=== PATIENT | male | born 1970 | race Caucasian/White ===

== ENCOUNTER 2016-08-04 10:46 | Inpatient (IN) | payer MEDICARE ==
--- NOTE | ~2016-08-04 | DS ---
Discharge Summary [facility] [address] [place]. [address] NAME: RANDY ADDISON : 74 STATUS : DIS IN PAT#: [id number] AGE: 46 ADM/REG DATE : 08/05/16 MR#: [id number] REPORT SERV DATE: 08/26/16 DICTATED BY: RYLAND CUEVA DATE: 08/25/16 REPORT STATUS : Draft TRANSCRIBED BY: MODCapri DATE: 08/25/16 Data Collection from hospitalization DISCHARGE DIAGNOSES: 1. Occlusion of both superficial femoral arteries. 2. Stenosis of right common iliac stent. 3. Occlusion of the anterior tibials bilaterally with only posterior tibial runoff bilaterally. 4. Diabetes. 5. Hypertension. 6. Neuropathy. 7. History of stroke. 8. Peripheral vascular disease. 9. History of myocardial infarction. 10.Tobacco use. CONSULTATION: Dr. Javon Miller. Dr. Alla Carpio. PROCEDURES PERFORMED: 1. Aortogram, bilateral lower extremity runoff, right superficial femoral artery stent using a 6 x 80 stent, percutaneous transluminal angioplasty of the right common iliac artery using a 6 x 4 balloon, pedal access, 08/04/2016. 2. Right femoral to distal popliteal and tibioperoneal trunk bypass using reverse saphenous vein, 08/08/2016. 3. Right cgmww-fku-ochr amputation, 08/10/2016. 4. Vein mapping of the bilateral lower extremities, 08/05/2016. 5. Myocardial perfusion imaging study, 08/06/2016. PATHOLOGY: Right leg yfrwj-dlk-aqjt amputation-benign cutaneous tissue with focal deep dermal subcutaneous microabscesses. Large vascular structures with focal atherosclerotic changes and calcification without luminal occlusion. Viable proximal skin and soft tissue and large vessel margins with ameq-rq-mekengh hyperplasia without prominent occlusion or marked atherosclerotic vascular changes. DISCHARGE MEDICATIONS: Norvasc 5 mg every morning, aspirin 81 mg every morning, Lipitor 40 mg at bedtime, Colace 100 mg twice a day, NovoLog injection insulin as instructed, Synthroid 150 mcg every morning, Lopressor 25 mg twice a day, Prilosec 40 mg every morning, MiraLAX powder one packet daily, Levemir 40 units subcutaneously twice a day, Tylenol 650 mg every four hours as needed, Mylanta 30 mL as needed, Dulcolax 10 mg per rectum every eight hours as needed, glucose tablets three tablets as needed, Ativan 2 mg at bedtime as needed, Mycostatin cream one application topically as needed, Percocet 5/325 two tablets every four hours as needed. CONDITION AT DISCHARGE: Stable. DISPOSITION: The patient was discharged to [facility] on an 1800- calorie diabetic diet with activities as instructed. He would follow up with Dr. Miller one month following discharge. He would follow up with me two weeks following discharge. Discharge Summary [address] [address] NAME: RANDY ADDISON : 74 STATUS : DIS IN PAT#: [id number] AGE: 46 ADM/REG DATE : 08/05/16 MR#: [id number] REPORT SERV DATE: 08/26/16 DICTATED BY: RYLAND CUEVA DATE: 08/25/16 REPORT STATUS : Draft TRANSCRIBED BY: MAIKEL DATE: 08/25/16 HOSPITAL COURSE: This is a 46-year-old man, who is a chronic vasculopath with horrible lower extremity disease. He continues to smoke. He takes Eliquis for management of his lower extremity blood flow. He has a previous history of stroke with residual paralysis and weakness of his right arm and leg and does not typically walk much due to his limited mobility. He said that he began having pain in the right foot at night when he was asleep. The pain was only improved by dangling his leg off the edge of the bed. MATT duplex had shown ischemia in the right leg with 0 toe pressure. No ulcerations were noted. He had no complaints regarding the left leg. He said that he had been taking his Eliquis as instructed twice a day and had not missed any dosages. The patient has rest pain of the right lower extremity. He has atherosclerotic disease with known previous stenting. It was felt that he would need to undergo aortogram and bilateral lower extremity runoff. He was admitted to the hospital at this time for further evaluation and treatment. Upon admission, the patient was taken to the operating room, where he underwent the above- mentioned procedure. He tolerated this well and there were no complications. The following day, he still had rest pain. It was felt that he would require fem-pop bypass for an attempt to salvage the right lower extremity. Vein mapping of the bilateral lower extremity was performed. He was seen by Dr. Alla Carpio. The patient was in the sinus rhythm. The patient has had diabetes mellitus since 2006. He had been on insulin since 2008. Hemoglobin A1c was going to be checked. The patient said he stopped smoking five days prior to this admission. We strongly recommended that he continue smoking cessation. Myocardial perfusion imaging study was requested. He was seen by Dr. Miller for preoperative evaluation in a patient with known coronary heart disease and a history of previous myocardial infarction. The patient was going to require lower extremity bypass surgery due to residual stenosis. He has relatively limited functional capacity. He does have a history of previous left hemispheric stroke with fairly dense right-sided hemiparesis. He is able to move the right lower extremity, although he cannot move the right upper extremity. He can walk stairs, but at a reduced pace. He reported no chest pain at this time. He said he did not have chest pain at the time of his myocardial infarction. He reported his index symptoms of myocardial ischemia as being generalized fatigue. He has no previous history of congestive heart failure or valvular heart disease. The patient had been a two-pack per day smoker for 22 years. He had just stopped smoking five days previously. A 12-lead EKG was reviewed. The patient has a poor functional status and was unable to perform the equivalent of 4 METs of activity. While he had no overt symptoms of acute coronary syndrome or congestive heart failure, Dr. Miller recommend risk stratification with myocardial perfusion imaging prior to proceeding with surgery. Given the high risk nature of his surgery should the patient have any large area of myocardial ischemia, then coronary angiography may be warranted preoperatively. Atorvastatin was continued as well as aspirin. He is being treated with Eliquis. This was being held for his vascular surgery. He underwent diabetes education. On the , a myocardial perfusion imaging study was performed. Imaging demonstrated no ischemia. Post infusion left ventricular ejection fraction was 55%. He denied chest pain or shortness of breath. He did have some hypoglycemia the previous evening. He did complain of right foot pain at rest. Hemoglobin A1c was 7.2. Lisinopril would be started if creatinine level remained stable. His right foot pain was controlled, but he still had some numbness and tingling. Heparin drip continued. He remained in a sinus rhythm. Blood glucose control was improving. On Discharge [address] [place]. [address] NAME: RANDY ADDISON: 74 STATUS : DIS IN PAT#: [id number] AGE: 46 ADM/REG DATE : 08/05/16 MR#: [id number] REPORT SERV DATE: 08/26/16 DICTATED BY: RYLAND CUEVA DATE: 08/25/16 REPORT STATUS : Draft TRANSCRIBED BY: MAIKEL DATE: 08/25/16 the , he was taken to the operating room, where he underwent the above-mentioned procedure. He tolerated this well and there were no complications. Postoperatively, Levemir was increased. On 08/09/2016, he was sitting up in bed. His pain was controlled with the CONTENT SPECIALIST. The foot was warm. Heparin was continued. He was still in the ICU. The next day, the patient was seen by Dr. Garrett Meyer. He had been asked to look at the right foot. The patient had decreased Doppler flow. His toes were dusky. He still had normal sensation. He was on a heparin drip. The patient had severe pain in the foot and was asking for amputation. The patient was taken to the operating room by Dr. Garrett Meyer, where he underwent the above- mentioned procedure. He tolerated this well and there were no complications. The patient remained on an insulin drip. Calcium channel norma and beta-norma were continued. The following day, his pain was controlled with the CONTENT SPECIALIST. He was tolerating some oral intake. He was evaluated by Occupational and Physical Therapy. He was in good spirits. On 08/12/2016, his pain was controlled with oral medications. He was in a knee immobilizer. Diabetes education continued. Sliding scale insulin and Levemir were continued as well. The following day, discharge planning was performed. His pain level was 4/10. We discussed the need to decrease his pain medication and the patient verbalized an understanding. Blood glucose was difficult to control. On 08/14/2016, he continued to progress. Blood glucose levels were under better control. Discharge instructions were given. Due to his improved and stable condition, he was discharged to [facility] with the above-stated instructions. Information collected by: Albina Oliveros I submit the above information as my discharge summary. SOL/MAIKEL Ryland Cueva M.D. / [id number] CC: Karen Ibrahim N.P. John Carter Hemphill, MD [facility]
--- NOTE | ~2016-08-04 | CN ---
Consultation Report [facility] [address] [place]. [address] NAME: RANDY ADDISON : 74 STATUS : ADM IN PAT#: [id number] AGE: 46 ADM/REG DATE : 08/05/16 MR#: [id number] REPORT SERV DATE: 08/05/16 DICTATED BY: JASPER MILLER DATE: 08/05/16 REPORT STATUS : Draft TRANSCRIBED BY: MODL DATE: 08/05/16 CARDIOLOGY CONSULTATION NOTE DATE OF CONSULTATION: 08/05/2016 REASON FOR CONSULTATION: Preoperative evaluation in a 46-year-old man with known coronary heart disease status post previous myocardial infarction. HISTORY OF PRESENT ILLNESS: Mr. Addison is a 46-year-old man with known coronary heart disease status post myocardial infarction in the year 2014 with percutaneous coronary intervention performed in [place], [place] by Dr. Castle. The patient was admitted electively by Dr. Mcghee for treatment of limb-threatening ischemia. The patient underwent percutaneous revascularization to the right superficial femoral artery and left femoral artery yesterday, 08/04/2016. The patient had no immediate complications, but apparently will require lower extremity bypass surgery due to residual stenosis. The patient therefore is preoperative status for open femoral popliteal bypass. The patient has relatively limited functional capacity. He has a history of previous left hemispheric stroke with a fairly dense right-sided hemiparesis. The patient is able to move his right lower extremity, though he cannot move his right upper extremity. The patient is able to walk stairs, but does so at a reduced pace. He is not able to perform the equivalent of 4 METs of activity. However, the patient has no chest pain at this time. He did not have chest pain at the time of his myocardial infarction however. He reports his index symptoms of myocardial ischemia as being generalized fatigue. The patient has no previous history of congestive heart failure or valvular heart disease. PAST MEDICAL HISTORY: 1. Type 2 diabetes. 2. Hypertension. 3. Dyslipidemia. 4. Peripheral arterial disease. 5. Stroke. 6. Tobacco abuse. 7. Hypothyroidism. PAST SURGICAL HISTORY: This is significant for multiple percutaneous revascularization procedures including visceral stents, not otherwise specified and previous percutaneous interventions to the patient's lower extremity for claudication. The patient underwent percutaneous coronary intervention to the first obtuse marginal branch on 11/29/[address] Castle, according to the card that the patient's family has provided. Surgical history is also significant for an orthopedic procedure to the patient's left ankle. No other surgical history is reported. Consultation Report [address] [place]. [address] NAME: RANDY ADDISON : 74 STATUS : ADM IN PAT#: [id number] AGE: 46 ADM/REG DATE : 08/05/16 MR#: [id number] REPORT SERV DATE: 08/05/16 DICTATED BY: JASPER MILLER DATE: 08/05/16 REPORT STATUS : Draft TRANSCRIBED BY: MAIKEL DATE: 08/05/16 FAMILY HISTORY: The patient reports that he was adopted and is not aware of his extended family history. He does have one biological brother who suffered myocardial infarction however. SOCIAL HISTORY: The patient is a koz-rera-lsv-day smoker x22 years. He reports he quit five days ago. He denies alcohol or recreational drug use. The patient is . ALLERGIES: THE PATIENT REPORTS AN ADVERSE REACTION TO DEMEROL. HOME MEDICATIONS: 1. Amlodipine 5 mg p.o. q.a.m. 2. Eliquis 5 mg p.o. twice daily. 3. Aspirin 81 mg p.o. daily. 4. Atorvastatin 40 mg p.o. at bedtime. 5. Insulin glargine 60 units subcutaneously at bedtime. 6. Humalog insulin 35 units subcutaneously q.a.c. 7. Synthroid 150 mcg p.o. q.a.m. 8. Lorazepam 2 mg p.o. at bedtime as needed for sleep. 9. Metoprolol tartrate 25 mg p.o. twice daily. 10.Nystatin cream apply topically as needed to affected area. 11.Omeprazole 40 mg p.o. at bedtime. REVIEW OF SYSTEMS: A complete 12-system review was performed. This is noncontributory except for the pertinent positives and negatives noted in the history of present illness above. PHYSICAL EXAMINATION: VITAL SIGNS: Temperature is 98.1 degrees Fahrenheit, blood pressure is 161/75 mmHg, heart rate is 73 beats per minute and regular, respirations 20, oxygen saturation is 98% on room air. GENERAL: Well developed. Well nourished. No acute distress. EYES: PERRL, EOMI, clear conjunctiva. HEAD/MNT: NCAT with moist mucous membranes and grossly normal hard and soft palate. NECK: Supple with no obvious thyromegaly or lymphadenopathy. CARDIOVASCULAR: There is a regular rhythm with a normal S1 and a physiologically split second heart sound. No significant murmurs, rubs, or gallops are noted. The jugular venous pressure appears normal. No carotid artery bruits are noted. PULMONARY: Clear to auscultation bilaterally. No wheezing, rales or rhonchi noted. No dullness to percussion. Nonlabored. ABDOMINAL: Soft, nontender, nondistended with no hepatosplenomegaly noted. EXTREMITIES: The lower extremities reveal hair loss suggestive of PAD, but otherwise are warm to the touch with no obvious evidence of ischemia at this time. MUSCULOSKELETAL: Grossly normal strength and range of motion in all extremities. INTEGUMENTARY: Skin appears intact with no bruises, wounds or active lesions noted. NEURO/PSYC: The patient has a dense hemiparesis of the right upper extremity, though Consultation Report [address] [place]. [address] NAME: RANDY ADDISON : 74 STATUS : ADM IN PAT#: [id number] AGE: 46 ADM/REG DATE : 08/05/16 MR#: [id number] REPORT SERV DATE: 08/05/16 DICTATED BY: JASPER MILLER DATE: 08/05/16 REPORT STATUS : Draft TRANSCRIBED BY: MAIKEL DATE: 08/05/16 strength is 4/5 in the right lower extremity. The patient has 5/5 strength in the left upper and left lower extremities. Sensation on the left side is intact, but reduced in the right upper extremity. No other focal deficits are noted. Alert and oriented x3, with no dysarthria, facial droop or lateralizing weakness noted. 12-LEAD EKG: The 12-lead EKG shows normal sinus rhythm. There was a Q-wave noted in lead 3, with nonsignificant Q-waves in leads II and aVF. A previous inferior infarction cannot be excluded. There is poor anterior R-wave progression. There are nonspecific ST/T-wave abnormalities. Otherwise, unremarkable tracing. LABORATORY DATA: CBC shows a white blood cell count of 8.4, hemoglobin 17, hematocrit 49, platelets 378. Electrolytes show a sodium of 135, potassium 4.5, chloride is 101, CO2 of 23, BUN 15 creatinine is 1.1, glucose is 237, calcium is 8.6. ASSESSMENT AND PLAN: 1. Preoperative status for open vascular surgery: The patient has poor functional status, and that he is unable to perform the equivalent of 4 METs of activity. While he has no overt symptoms of acute coronary syndrome or congestive heart failure, I would recommend risk stratification with myocardial perfusion imaging before proceeding to surgery. Given the high-risk nature of the surgery, should the patient have any large area of myocardial ischemia, coronary angiography may be warranted preoperatively. The patient did have a full breakfast today, and therefore his perfusion study will be scheduled for tomorrow morning. In the interim, I will try to obtain official records from Dr. Castle's office to clarify the patient's coronary anatomy. The patient has no history of congestive heart failure, though his LV systolic function is unknown at this time. A perfusion study will be ordered also to evaluate the patient's left ventricular systolic function. He has no murmurs to suggest significant valvular heart disease. Should the patient's myocardial perfusion imaging study show no high-risk features, the patient may then proceed with open surgery. He is at least moderate cardiovascular risk given his poor functional status. 2. Coronary artery disease: Continue aspirin at least 81 mg daily indefinitely. Continue atorvastatin. 3. Peripheral arterial disease: The patient is being followed by Dr. Mcghee. Again he will continue atorvastatin. The patient is being treated with Eliquis, apparently for some type of either arterial thrombosis or DVT. This has been held for the patient's vascular surgery. 4. Type 2 diabetes: The hospital medicine service has been consulted for management of the patient's diabetes. Thank you for allowing me to participate in the care of Mr. Addison. We will make further perioperative recommendations after review of the patient's myocardial perfusion imaging study and hopefully records from Dr. Castle's office. Consultation Report [address] [address] NAME: RANDY ADDISON : 74 STATUS : ADM IN PAT#: [id number] AGE: 46 ADM/REG DATE : 08/05/16 MR#: [id number] REPORT SERV DATE: 08/05/16 DICTATED BY: JASPER MILLER DATE: 08/05/16 REPORT STATUS : Draft TRANSCRIBED BY: MODL DATE: 08/05/16 [facility]/MODL Jasper Miller MD / [id number] CC: Karen Ibrahim N.P.
--- NOTE | ~2016-08-04 | OP ---
Record Of Operation [facility] [address] [place]. [address] NAME: RANDY ADDISON : 74 STATUS : REG [facility] PAT#: [id number] AGE: 46 ADM/REG DATE : 08/04/16 MR#: [id number] REPORT SERV DATE: 08/04/16 DICTATED BY: RYLAND CUEVA DATE: 08/04/16 REPORT STATUS : Draft TRANSCRIBED BY: MODL DATE: 08/04/16 DATE OF PROCEDURE: 08/04/2016 PREOPERATIVE DIAGNOSES: 1. Rest pain, right lower extremity. 2. Atherosclerotic disease with known previous stenting. POSTOPERATIVE DIAGNOSES: 1. Occlusion of both superficial femoral arteries. 2. Stenosis of his right common iliac stent. 3. Occlusion of the anterior tibials bilaterally with only posterior tibial runoff bilaterally. SURGERY PERFORMED: 1. Aortogram. 2. Bilateral lower extremity runoffs. 3. Right superficial femoral artery stent using a 6 x 80 stent. 4. Percutaneous transluminal angioplasty of the right common iliac artery using a 6 x 4 balloon. 5. Pedal access. SURGEON: Ryland Cueva M.D. DESCRIPTION OF PROCEDURE: The patient was placed under general anesthesia. The groins were prepped and draped in a sterile fashion. Left femoral artery cannulated. UF catheter placed into the abdominal aorta. An aortogram done showing both renal arteries were patent, although the right was not seen well due to bowel gas, but appeared to be grossly normal. The both iliacs appeared to be patent proximally. The UF was pulled down into the distal aorta. Runoff films done showing on the right side, the common iliac stent appeared to be stenotic in the distal portion. There was also stent in the external iliac artery that appeared to be patent. The internal was patent. The common femoral, profunda, SFA was patent in the proximal thigh. Distally, the SFA became occluded. Previously placed stent in the thigh also showing occlusion in the SFA. There was reconstitution of the popliteal below the stent and the proximal popliteal. Runoff appeared to be through the posterior tibial primarily. Anterior tibia was not seen, questionable peroneal. At this finding, UF was manipulated up and over the bifurcation, 6, 45, placed up over the bifurcation. Access through the occluded SFA was accomplished with a TrailBlazer and 0.035 wire. However, there was a dissection in the area where the vessel became patent and could not reobtain access to the lumen and eventually had to use the pedal access. He was given 3000 units of heparin prior to this. The posterior tibial artery was accessed at the ankle using the ultrasound and the wire was then able to be passed retrograde into the femoral artery, it was captured with a snare and then pulled up and around through the sheath. The entire occluded portion was then ballooned with a 4 balloon and we were able to obtain some flow through the SFA and the popliteal, but there was still a large atherosclerotic area and distal SFA just proximal to popliteal. The vessels were relatively small. This area was then stented using a 6 x 80 stent and then the ballooning of the entire stent was done again using a 5 balloon. Also, Record Of [address] [place]. [address] NAME: RANDY ADDISON : 74 STATUS : REG [facility] PAT#: [id number] AGE: 46 ADM/REG DATE : 08/04/16 MR#: [id number] REPORT SERV DATE: 08/04/16 DICTATED BY: RYLAND CUEVA DATE: 08/04/16 REPORT STATUS : Draft TRANSCRIBED BY: MODL DATE: 08/04/16 injected 400 mcg of nitroglycerin due to some spasm in the distal popliteal. The final run showing flow through the area into the popliteal into the posterior tibial artery. The sheath was pulled up to the proximal common iliac on the right. Angiogram done showing a questionable area in the very distal common iliac stent indicated on the duplex, this was ballooned with a 6 x 4 [place], this was ballooned up to 12 atmospheres twice and repeat films showing what appeared to be no residual stenosis in the common iliac artery. Runoff on the left side showing that the iliacs were patent. The common femoral profunda was patent. The SFA showed occlusion in the mid thigh and then reconstituted in the popliteal with the posterior tibial artery runoff. He was stable during the operation and went to the recovery room in stable condition. ESTIMATED BLOOD LOSS: 30 mL. MG/MODL Ryland Cueva M.D. / [id number] CC: Karen Ibrahim N.P.
--- NOTE | ~2016-08-04 | OP ---
Record Of Operation [facility] [address] [place]. [address] NAME: RANDY ADDISON : 74 STATUS : ADM IN PAT#: [id number] AGE: 46 ADM/REG DATE : 08/05/16 MR#: [id number] REPORT SERV DATE: 08/10/16 DICTATED BY: GARRETT MEYER JR. DATE: 08/10/16 REPORT STATUS : Draft TRANSCRIBED BY: MAIKEL DATE: 08/10/16 DATE OF PROCEDURE: 08/10/2016 PREOPERATIVE DIAGNOSIS: Failed right leg bypass. POSTOPERATIVE DIAGNOSIS: Failed right leg bypass. OPERATION: Right below-knee amputation. SURGEON: Garrett Meyer M.D. HISTORY: This is a 46-year-old, white male with diabetes who had a desperate bypass attempt several days ago by Dr. Mcghee. Initially, his bypass seemed to work despite a small vein and poor runoff vessels. However, yesterday, it was clear that it was not going to cure his rest pain. He actually requested amputation. PROCEDURE: The patient was placed on the operating table. He underwent general endotracheal anesthetic. The right leg was prepped and draped in the usual sterile manner. The anterior flap was created 15 cm distal to the tibial tubercle. Posterior flap was created 10 cm distal to this. The skin was cut sharply with a knife. Underlying muscle was cut with the cautery. All the muscle appeared to be viable. The anterior tibial artery was essentially occluded. The fibula was cut shorter than the tibia with a power saw. The tibia was then cut with the same power saw and beveled anteriorly. The posterior tibial artery was patent. Perineal artery was not. The wound was irrigated. Focal bleeders were cauterized or suture ligated. The fascia was closed with 2-0 Vicryl. The skin was closed with 3-0 nylon. A posterior splint was applied. The patient tolerated the procedure well, taken back to Recovery Room in fair condition. There were no intraoperative complications. ESTIMATED BLOOD LOSS: 200 mL. DF/MAIKEL Garrett Meyer Jr., M.D. / [id number] CC: Ryland Mcghee M.D.
--- NOTE | ~2016-08-04 | OP ---
Record Of Operation [facility] [address] [place]. [address] NAME: RANDY ADDISON : 74 STATUS : ADM IN PAT#: [id number] AGE: 46 ADM/REG DATE : 08/05/16 MR#: [id number] REPORT SERV DATE: 08/08/16 DICTATED BY: RYLAND CUEVA DATE: 08/08/16 REPORT STATUS : Draft TRANSCRIBED BY: MODL DATE: 08/08/16 DATE OF PROCEDURE: 08/08/2016 PREOPERATIVE DIAGNOSES: Severe right lower extremity atherosclerotic disease with rest pain. Previous arteriogram showing occlusion of the superficial femoral artery. POSTOPERATIVE DIAGNOSES: Severe right lower extremity atherosclerotic disease with rest pain. Previous arteriogram showing occlusion of the superficial femoral artery. SURGERY PERFORMED: Right femoral to distal popliteal and tibioperoneal trunk bypass using reverse saphenous vein. SURGEON: Ryland Cueva M.D. MUSEUM EDUCATOR: Bladimir. DESCRIPTION OF PROCEDURE: The patient was placed under general endotracheal anesthesia. Right leg was prepped and draped in sterile fashion. The saphenous vein was removed from the mid calf to the groin. Incision was made over the common femoral vessels in the groin and carried through the skin and subcutaneous tissue down to the saphenous vein. This was ligated at the saphenous femoral junction. The vein was then taken to the side table for preparation. The femoral vessels were exposed using sharp dissection of the common femoral, profunda, SFA. The vessels were fairly thickened and the pulsatility was somewhat diminished. However, it was pulsatile. The distal popliteal and tibioperoneal trunk was exposed through an upper calf incision made longitudinally beneath the tibia, carried through skin and subcutaneous tissue. Deep popliteal fascia was opened. The popliteal artery was dissected from the surrounding tissue and encircled vessel loop. Distal dissection carried down to the anterior tibial which was encircled vessel loops and then the opposed the tibioperoneal trunk, which was soft and pliable. The popliteal was still somewhat firm. He was given 5000 units of heparin. After adequate period of time, the popliteal, anterior tibial, distal tibioperoneal were occluded. Arteriotomy was made in the distal popliteal and extended across the anterior tibial onto the tibioperoneal trunk. The vein was then sewn using 6-0 Prolene suture end-to-side anastomosis. Subfascial tunneling created up to the femoral region with the graft was pulled through the tunneling device. The common femoral, profunda, SFA were occluded. Arteriotomy made in the common femoral extended over the profunda. End-to-side anastomosis done with the vein. The vein was relatively small, but there was pulsatile flow after flushing the anastomosis. Flushing was done also with the distal. There was retrograde flow through the posterior tibial. There was no retrograde flow through the anterior tibial. The graft sutures were tied. Acquire for least of flow showed good diastolic flow. At the anastomosis but only monophasic flow at the posterior tibial at the ankle. It was felt that this cannot be improved upon at this point in time. He did not have any signals prior to the procedure and therefore this was an improvement. The wounds were all irrigated and closed with 2-0 and 3-0 Vicryl sutures. Skin closed with 4-0 Monocryl subcuticular sutures. Sent to the recovery room. It was going to be maintained on IV heparin drip. Estimated blood loss was 100 mL. Record Of Operation [address] [address] NAME: RANDY ADDISON : 74 STATUS : ADM IN PAT#: [id number] AGE: 46 ADM/REG DATE : 08/05/16 MR#: [id number] REPORT SERV DATE: 08/08/16 DICTATED BY: RYLAND CUEVA DATE: 08/08/16 REPORT STATUS : Draft TRANSCRIBED BY: MAIKEL DATE: 08/08/16 /MAIKEL Ryland Cueva M.D. / [id number] CC: Karen Ibrahim N.P.
[~2016-08-04 10:46] MED LIST: ASA5GR PO; ATIVAN2 MG PO; ELIQUIS 5 MG TAB5 MG PO; LANTUS SC; LIPITOR40 PO; LOP25 PO; MYCOSCROI TOP; NORCO1 TA1 PO; NORV5 PO; NOVOLOG SC; PLAVIX PO; PRILOSEC40 MG PO; SYN.15 PO
[2016-08-04 11:39] LABS: BASOPHILS 0.7 %; BASOPHILS ABSOLUTE 0.06 10/3/uL (0.0-0.16); EOSINOPHILS 2.3 %; EOSINOPHILS ABSOLUTE 0.19 10/3/uL (0.0-0.53); HEMATOCRIT 48.7 % (40.0-51.0); HEMOGLOBIN 17.2 g/dL (13.6-17.8); IMMATURE GRANULOCYTES 0.4 %; IMMATURE GRANULOCYTES ABSOLUTE 0.03 10/3/uL (0.0-0.11); LYMPHOCYTES 34.4 %; LYMPHOCYTES ABSOLUTE 2.87 10/3/uL (0.67-4.30); MANUAL DIFF NO %; MEAN CORPUS HGB CONC 35.3 g/dL (32.0-36.0); MEAN CORPUSCULAR HEMOGLOB 32.3 pg (26.0-34.0); MEAN CORPUSCULAR VOLUME 91.5 fL (80-100); MEAN PLATELET VOLUME 9.3 fL (9.2-13.0); MONOCYTES 11.1 %; MONOCYTES ABSOLUTE 0.93 10/3/uL (0.21-1.20); NEUTROPHILS 51.1 %; NEUTROPHILS ABSOLUTE 4.27 10/3/uL (2.02-8.40); PLATELET COUNT 378 10/3/uL (150-400); RBC DISTRIBUTION WIDTH 13.6 % (12.0-16.0); RED CELL COUNT 5.32 10/6/uL (4.7-6.1); WHITE BLOOD CELLS 8.4 10/3/uL (4.5-10.5)
[2016-08-04 11:52] LABS: BUN (BLOOD UREA NITROGEN) 15 MG/DL (6-23); CALCIUM, SERUM 8.6 MG/DL (8.5-10.4); CHLORIDE, SERUM 101 MMOL/L (96-112); CO2 (CARBON DIOXIDE) 23 MMOL/L (24-34); CREATININE 1.09 MG/DL (0.70-1.30); GFR AFRICAN AMERICAN 95 ML/MIN (>=60); GFR NON AFRICAN AMERICAN 82 ML/MIN (>=60); GLUCOSE, SERUM 237 MG/DL (60-99); POTASSIUM, SERUM 4.5 MMOL/L (3.5-5.3); SODIUM, SERUM 135 MMOL/L (135-148)
[2016-08-06 17:15] LABS: BASOPHILS 0.6 %; BASOPHILS ABSOLUTE 0.05 10/3/uL (0.0-0.16); EOSINOPHILS 1.8 %; EOSINOPHILS ABSOLUTE 0.15 10/3/uL (0.0-0.53); HEMOGLOBIN 15.5 g/dL (13.6-17.8); IMMATURE GRANULOCYTES 0.1 %; IMMATURE GRANULOCYTES ABSOLUTE 0.01 10/3/uL (0.0-0.11); LYMPHOCYTES 43.4 %; LYMPHOCYTES ABSOLUTE 3.55 10/3/uL (0.67-4.30); MANUAL DIFF NO %; MEAN CORPUS HGB CONC 35.2 g/dL (32.0-36.0); MEAN CORPUSCULAR VOLUME 90.9 fL (80-100); MEAN PLATELET VOLUME 9.2 fL (9.2-13.0); MONOCYTES 10.5 %; MONOCYTES ABSOLUTE 0.86 10/3/uL (0.21-1.20); NEUTROPHILS 43.6 %; NEUTROPHILS ABSOLUTE 3.56 10/3/uL (2.02-8.40); PLATELET COUNT 326 10/3/uL (150-400); RED CELL COUNT 4.84 10/6/uL (4.7-6.1); WHITE BLOOD CELLS 8.2 10/3/uL (4.5-10.5)
[2016-08-06 17:29] LABS: BUN (BLOOD UREA NITROGEN) 15 MG/DL (6-23); CALCIUM, SERUM 8.9 MG/DL (8.5-10.4); CHLORIDE, SERUM 100 MMOL/L (96-112); CO2 (CARBON DIOXIDE) 25 MMOL/L (24-34); CREATININE 1.13 MG/DL (0.70-1.30); GFR AFRICAN AMERICAN 91 ML/MIN (>=60); GFR NON AFRICAN AMERICAN 79 ML/MIN (>=60); GLUCOSE, SERUM 276 MG/DL (60-99); POTASSIUM, SERUM 4.1 MMOL/L (3.5-5.3); SODIUM, SERUM 133 MMOL/L (135-148)
[2016-08-08 03:55] LABS: BASOPHILS 0.5 %; BASOPHILS ABSOLUTE 0.05 10/3/uL (0.0-0.16); EOSINOPHILS 2.8 %; EOSINOPHILS ABSOLUTE 0.27 10/3/uL (0.0-0.53); HEMATOCRIT 43.4 % (40.0-51.0); HEMOGLOBIN 15.4 g/dL (13.6-17.8); IMMATURE GRANULOCYTES 0.3 %; IMMATURE GRANULOCYTES ABSOLUTE 0.03 10/3/uL (0.0-0.11); LYMPHOCYTES 45.9 %; LYMPHOCYTES ABSOLUTE 4.36 10/3/uL (0.67-4.30); MANUAL DIFF NO %; MEAN CORPUS HGB CONC 35.5 g/dL (32.0-36.0); MEAN CORPUSCULAR HEMOGLOB 32.2 pg (26.0-34.0); MEAN CORPUSCULAR VOLUME 90.6 fL (80-100); MEAN PLATELET VOLUME 9.5 fL (9.2-13.0); MONOCYTES 9.4 %; MONOCYTES ABSOLUTE 0.89 10/3/uL (0.21-1.20); NEUTROPHILS 41.1 %; PLATELET COUNT 323 10/3/uL (150-400); RED CELL COUNT 4.79 10/6/uL (4.7-6.1); WHITE BLOOD CELLS 9.5 10/3/uL (4.5-10.5)
[2016-08-08 04:08] LABS: BUN (BLOOD UREA NITROGEN) 15 MG/DL (6-23); CALCIUM, SERUM 9.1 MG/DL (8.5-10.4); CHLORIDE, SERUM 100 MMOL/L (96-112); CO2 (CARBON DIOXIDE) 25 MMOL/L (24-34); CREATININE 1.16 MG/DL (0.70-1.30); GFR AFRICAN AMERICAN 88 ML/MIN (>=60); GFR NON AFRICAN AMERICAN 76 ML/MIN (>=60); GLUCOSE, SERUM 201 MG/DL (60-99); POTASSIUM, SERUM 3.8 MMOL/L (3.5-5.3); SODIUM, SERUM 135 MMOL/L (135-148)
[2016-08-08 12:50] LABS: INTERNATIONAL NORMAL RATI 1.1 UNITS (-); PROTIME (NOT ORD) 14.1 SEC (12.0-14.5)
[2016-08-08 13:14] LABS: PARTIAL THROMBO TIME 33.8 SEC (22.5-37.2)
[2016-08-09 05:27] LABS: BASOPHILS 0.2 %; BASOPHILS ABSOLUTE 0.03 10/3/uL (0.0-0.16); EOSINOPHILS 0.7 %; EOSINOPHILS ABSOLUTE 0.09 10/3/uL (0.0-0.53); HEMATOCRIT 43.3 % (40.0-51.0); HEMOGLOBIN 14.9 g/dL (13.6-17.8); IMMATURE GRANULOCYTES 0.2 %; IMMATURE GRANULOCYTES ABSOLUTE 0.03 10/3/uL (0.0-0.11); LYMPHOCYTES 26.7 %; LYMPHOCYTES ABSOLUTE 3.37 10/3/uL (0.67-4.30); MEAN CORPUS HGB CONC 34.4 g/dL (32.0-36.0); MEAN CORPUSCULAR VOLUME 93.1 fL (80-100); MEAN PLATELET VOLUME 9.4 fL (9.2-13.0); MONOCYTES 11.2 %; MONOCYTES ABSOLUTE 1.41 10/3/uL (0.21-1.20); NEUTROPHILS ABSOLUTE 7.69 10/3/uL (2.02-8.40); PLATELET COUNT 356 10/3/uL (150-400); RBC DISTRIBUTION WIDTH 13.2 % (12.0-16.0); RED CELL COUNT 4.65 10/6/uL (4.7-6.1); WHITE BLOOD CELLS 12.6 10/3/uL (4.5-10.5)
[2016-08-09 05:28] LABS: MANUAL DIFF NO %
[2016-08-09 05:42] LABS: BUN (BLOOD UREA NITROGEN) 14 MG/DL (6-23); CALCIUM, SERUM 8.8 MG/DL (8.5-10.4); CHLORIDE, SERUM 100 MMOL/L (96-112); CO2 (CARBON DIOXIDE) 27 MMOL/L (24-34); CREATININE 1.28 MG/DL (0.70-1.30); GFR AFRICAN AMERICAN 78 ML/MIN (>=60); GFR NON AFRICAN AMERICAN 68 ML/MIN (>=60); GLUCOSE, SERUM 152 MG/DL (60-99); PHOSPHORUS, SERUM 3.7 MG/DL (2.5-4.5); POTASSIUM, SERUM 4.4 MMOL/L (3.5-5.3); SODIUM, SERUM 137 MMOL/L (135-148)
[2016-08-10 04:06] LABS: BASOPHILS 0.3 %; BASOPHILS ABSOLUTE 0.04 10/3/uL (0.0-0.16); EOSINOPHILS 1.6 %; EOSINOPHILS ABSOLUTE 0.21 10/3/uL (0.0-0.53); HEMATOCRIT 42.6 % (40.0-51.0); HEMOGLOBIN 14.6 g/dL (13.6-17.8); IMMATURE GRANULOCYTES 0.2 %; IMMATURE GRANULOCYTES ABSOLUTE 0.03 10/3/uL (0.0-0.11); LYMPHOCYTES 28.6 %; LYMPHOCYTES ABSOLUTE 3.74 10/3/uL (0.67-4.30); MANUAL DIFF NO %; MEAN CORPUS HGB CONC 34.3 g/dL (32.0-36.0); MEAN CORPUSCULAR HEMOGLOB 32.1 pg (26.0-34.0); MEAN CORPUSCULAR VOLUME 93.6 fL (80-100); MEAN PLATELET VOLUME 9.3 fL (9.2-13.0); MONOCYTES 10.9 %; MONOCYTES ABSOLUTE 1.42 10/3/uL (0.21-1.20); NEUTROPHILS 58.4 %; NEUTROPHILS ABSOLUTE 7.64 10/3/uL (2.02-8.40); PLATELET COUNT 338 10/3/uL (150-400); RBC DISTRIBUTION WIDTH 13.3 % (12.0-16.0); RED CELL COUNT 4.55 10/6/uL (4.7-6.1); WHITE BLOOD CELLS 13.1 10/3/uL (4.5-10.5)
[2016-08-10 04:10] LABS: INTERNATIONAL NORMAL RATI 1.1 UNITS (-); PROTIME (NOT ORD) 14.4 SEC (12.0-14.5)
[2016-08-10 04:12] LABS: PARTIAL THROMBO TIME 88.8 SEC (22.5-37.2)
[2016-08-10 04:18] LABS: BUN (BLOOD UREA NITROGEN) 10 MG/DL (6-23); CHLORIDE, SERUM 99 MMOL/L (96-112); CO2 (CARBON DIOXIDE) 28 MMOL/L (24-34); CREATININE 1.12 MG/DL (0.70-1.30); GFR AFRICAN AMERICAN 92 ML/MIN (>=60); GFR NON AFRICAN AMERICAN 79 ML/MIN (>=60); GLUCOSE, SERUM 200 MG/DL (60-99); PHOSPHORUS, SERUM 2.9 MG/DL (2.5-4.5); SODIUM, SERUM 137 MMOL/L (135-148)
[2016-08-12 08:56] LABS: BASOPHILS 0.4 %; BASOPHILS ABSOLUTE 0.04 10/3/uL (0.0-0.16); EOSINOPHILS 2.2 %; EOSINOPHILS ABSOLUTE 0.21 10/3/uL (0.0-0.53); HEMATOCRIT 41.9 % (40.0-51.0); HEMOGLOBIN 14.6 g/dL (13.6-17.8); IMMATURE GRANULOCYTES 0.3 %; IMMATURE GRANULOCYTES ABSOLUTE 0.03 10/3/uL (0.0-0.11); LYMPHOCYTES 23.9 %; LYMPHOCYTES ABSOLUTE 2.31 10/3/uL (0.67-4.30); MEAN CORPUS HGB CONC 34.8 g/dL (32.0-36.0); MEAN CORPUSCULAR HEMOGLOB 32.2 pg (26.0-34.0); MEAN CORPUSCULAR VOLUME 92.5 fL (80-100); MEAN PLATELET VOLUME 9.1 fL (9.2-13.0); MONOCYTES 9.8 %; MONOCYTES ABSOLUTE 0.95 10/3/uL (0.21-1.20); NEUTROPHILS 63.4 %; NEUTROPHILS ABSOLUTE 6.11 10/3/uL (2.02-8.40); PLATELET COUNT 396 10/3/uL (150-400); RBC DISTRIBUTION WIDTH 13.1 % (12.0-16.0); RED CELL COUNT 4.53 10/6/uL (4.7-6.1); WHITE BLOOD CELLS 9.7 10/3/uL (4.5-10.5)
[2016-08-12 08:57] LABS: MANUAL DIFF NO %
[2016-08-13 05:02] LABS: BASOPHILS 0.4 %; BASOPHILS ABSOLUTE 0.04 10/3/uL (0.0-0.16); HEMATOCRIT 41.7 % (40.0-51.0); IMMATURE GRANULOCYTES 0.4 %; IMMATURE GRANULOCYTES ABSOLUTE 0.04 10/3/uL (0.0-0.11); LYMPHOCYTES ABSOLUTE 2.55 10/3/uL (0.67-4.30); MEAN CORPUSCULAR VOLUME 91.9 fL (80-100); MEAN PLATELET VOLUME 9.1 fL (9.2-13.0); MONOCYTES 8.9 %; MONOCYTES ABSOLUTE 0.87 10/3/uL (0.21-1.20); NEUTROPHILS 62.3 %; PLATELET COUNT 427 10/3/uL (150-400); RED CELL COUNT 4.54 10/6/uL (4.7-6.1); WHITE BLOOD CELLS 9.8 10/3/uL (4.5-10.5)
[2016-08-13 05:09] LABS: MANUAL DIFF NO %
[2016-08-13 05:12] LABS: BUN (BLOOD UREA NITROGEN) 11 MG/DL (6-23); CHLORIDE, SERUM 96 MMOL/L (96-112); CO2 (CARBON DIOXIDE) 24 MMOL/L (24-34); CREATININE 0.99 MG/DL (0.70-1.30); GFR AFRICAN AMERICAN 107 ML/MIN (>=60); GFR NON AFRICAN AMERICAN 92 ML/MIN (>=60); POTASSIUM, SERUM 4.7 MMOL/L (3.5-5.3)
[2016-08-13 05:13] LABS: GLUCOSE, SERUM 347 MG/DL (60-99); SODIUM, SERUM 130 MMOL/L (135-148)
[2016-10-27] MEDS ORDERED: FLEX PO (16:09)
== END 2016-08-14 11:55 | DRG 240 ==
LOC: SDC 10:46 → SSU1 18:32 → 2SO 08-06 17:25 → SDC/OF 08-08 12:14 → CVICU 08-08 12:35 → 2SO 08-10 10:30
PROVIDERS: Anesthesiology; Internal Medicine; Nurse Practitioner; Nurse Practitioner Family; Surgery Vascular Surgery; Thoracic Surgery (Cardiothoracic Vascular Surgery)
PROC: B41D1ZZ Fluoroscopy of Aorta and Bilateral Lower Extremity Arteries using Low Osmolar Contrast (ICD-10-PCS; principal; 2016-08-05)
PROC: 047K3DZ Dilation of Right Femoral Artery with Intraluminal Device, Percutaneous Approach (ICD-10-PCS; 2016-08-05)
PROC: 047M3ZZ Dilation of Right Popliteal Artery, Percutaneous Approach (ICD-10-PCS; 2016-08-05)
PROC: 041K09L Bypass Right Femoral Artery to Popliteal Artery with Autologous Venous Tissue, Open Approach (ICD-10-PCS; 2016-08-08)
PROC: 06BR0ZZ (ICD-10-PCS; 2016-08-08)
PROC: 041K0ZM Bypass Right Femoral Artery to Peroneal Artery, Open Approach (ICD-10-PCS; 2016-08-08)
PROC: 0Y6H0Z1 Detachment at Right Lower Leg, High, Open Approach (ICD-10-PCS; 2016-08-10)
DX: I70.221 Atherosclerosis of native arteries of extremities with rest pain, right leg (principal); T82.858A Stenosis of other vascular prosthetic devices, implants and grafts, initial encounter; I10 Essential (primary) hypertension; I25.10 Atherosclerotic heart disease of native coronary artery without angina pectoris; E11.9 Type 2 diabetes mellitus without complications; E78.5 Hyperlipidemia, unspecified; F17.210 Nicotine dependence, cigarettes, uncomplicated; E03.9 Hypothyroidism, unspecified; K21.9 Gastro-esophageal reflux disease without esophagitis; I25.2 Old myocardial infarction; Z95.5 Presence of coronary angioplasty implant and graft; Z86.73 Personal history of transient ischemic attack (TIA), and cerebral infarction without residual deficits; Z82.49 Family history of ischemic heart disease and other diseases of the circulatory system; Z88.5 Allergy status to narcotic agent
CPT/HCPCS: 36247; 36415; 37220; 37226; 71010; 75625; 75716; 78452; 80048; 82330; 82803; 82947; 82962; 83036; 83735; 84100; 84132; 84295; 85014; 85025; 85610; 85730; 86850; 86900; 86901; 87641; 88307; 88311; 93005; 93017; 97162-GP; 97166-GO; 97530-GP; 97535-GO; A9270-GY; A9502; C1725; C1760; C1769; C1876; C1894; G0365; G8978-CL-GP; G8979-CK-GP; G8987-CK-GO; G8988-CJ-GO; J0153; J0690; J1170; J2250; J2270; J2370; J2405; J2710; J3010; Q9966

== ENCOUNTER 2016-09-11 12:42 | Inpatient (IN) | payer MEDICARE ==
--- NOTE | ~2016-09-11 | OP ---
Record Of Operation [facility] [address] [place]. [address] NAME: RANDY ADDISON : 74 STATUS : ADM IN PAT#: [id number] AGE: 46 ADM/REG DATE : 09/11/16 MR#: [id number] REPORT SERV DATE: 09/12/16 DICTATED BY: GARRETT MEYER JR. DATE: 09/11/16 REPORT STATUS : Draft TRANSCRIBED BY: MODL DATE: 09/11/16 DATE OF PROCEDURE: PREOPERATIVE DIAGNOSIS: Failed right BKA stump. POSTOPERATIVE DIAGNOSIS: Failed right BKA stump. OPERATION: Right knee disarticulation. SURGEON: Garrett Meyer M.D. VASCULAR FELLOW: Dr. Carol Garrison. HISTORY: This is a 46-year-old white male, who had a desperate attempt at bypass by Dr. Ryland Mcghee approximately 1 month ago. Following a failed bypass, I did a right below- knee amputation with the clear understanding that this suggests right may not be any higher than 50%. I have been seeing the patient in the office every 3 to 4 days. The patient has complained of global stump pain compatible with ischemic muscle. The posterior flap was showing signs of necrosis. I have seen as early as this morning and was in terrible pain. I felt that the only reasonable option was to take this leg off. PROCEDURE: The patient was placed on the operating table. He underwent a general endotracheal anesthetic. The right leg was prepped and draped in sterile manner as possible. Standard anterior and posterior flaps were then drawn and cut with a knife. The anterior and posterior flaps were then developed using the cautery. The joint space was entered anteriorly. The joint capsule was then completely cut anteriorly. Anterior and posterior cruciate ligaments in addition to the medial and lateral collateral ligaments were then cut. Some of the gastrocnemius muscle posteriorly was cut. The nerve was then found. It was clamped, tied and injected with Marcaine anesthetic. The popliteal artery and vein were identified were clamped and cut. The artery was thrombosed. The vein was patent. The wound was thoroughly irrigated. A drain was placed and brought out anteriorly. The fascia was closed with 2-0 Vicryl. Skin was closed with a running 3-0 nylon. The patient tolerated the procedure well. Taken back to recovery room in fair condition. No intraoperative complications. Estimated blood loss was 100 mL. DF/MODL Garrett Meyer Jr., M.D. / [id number]
--- NOTE | ~2016-09-11 | DS ---
Discharge Summary [facility] [address] [place]. [address] NAME: RANDY ADDISON : 74 STATUS : DIS IN PAT#: [id number] AGE: 46 ADM/REG DATE : 09/11/16 MR#: [id number] REPORT SERV DATE: 09/23/16 DICTATED BY: GARRETT MEYER JR. DATE: 09/22/16 REPORT STATUS : Draft TRANSCRIBED BY: MAIKEL DATE: 09/22/16 Data Collection from hospitalization DISCHARGE DIAGNOSIS(ES): 1. Failed right below-knee amputation stump. 2. Diabetes mellitus. 3. Hypertension. 4. Neuropathy. 5. Peripheral vascular disease. CONSULTATIONS: None. PROCEDURES PERFORMED: Right knee disarticulation, 09/11/2016. PATHOLOGY: Right knee disarticulation from revised amputation stump, cutaneous ulceration with ischemic necrosis, focal acute inflammation extending to deep soft tissue and large vessels with focal thrombosis, viable skin and soft tissue margin with rare focus of mild chronic inflammation, and foreign body reaction, bone margin within normal limits. MEDICATIONS: Norvasc 5 mg every morning, aspirin 81 mg every morning, Lipitor 40 mg at bedtime, Lantus insulin 55 units after breakfast and supper, Synthroid 150 mcg every morning, Lopressor 25 mg twice daily, Prilosec 40 mg every morning, Levemir 55 units twice daily, Humalog insulin sliding scale as directed, Ativan 2 mg at bedtime as needed, Mycostatin apply topically as needed. CONDITION AT DISCHARGE: Upon discharge, he did appear to be doing well and had no complaints. DISPOSITION: He was discharged home to continue with diet and activities as discussed. He was to follow up with me in the office on 09/18/2016. HOSPITAL COURSE: This 46-year-old male had a desperate attempt at bypass by Dr. Ryland Mcghee approximately one month ago following a failed bypass. I did a right below-knee amputation with a clear understanding that this suggests right may not be any higher than 50%. I had been seeing the patient in the office every three to four days. He had complaints of global stump pain compatible with ischemic muscle. The posterior flap was showing signs of necrosis, I had seen as early as the morning of admission and the patient was in terrible pain. It was felt that the only reasonable option was to take this leg off. He was now admitted for surgery and further evaluation. Upon admission to the hospital, he had been taken to the operating room, where he did undergo the above procedure. He tolerated had this well and was transferred to the recovery room. On postop day one, his pain was better and was noted to be different pain than preoperatively. He was afebrile and his vital signs were stable. On postop day two, he did still have pain; however, was well controlled. He was afebrile and his vital signs had remained stable. He was continued on supportive care. On postop day three, he did remain in stable condition and was then discharged with the above instructions. Information collected by: Fatou Gracia Discharge Summary [address] [address] NAME: RANDY ADDISON : 74 STATUS : DIS IN PAT#: [id number] AGE: 46 ADM/REG DATE : 09/11/16 MR#: [id number] REPORT SERV DATE: 09/23/16 DICTATED BY: GARRETT MEYER JR. DATE: 09/22/16 REPORT STATUS : Draft TRANSCRIBED BY: MAIKEL DATE: 09/22/16 I submit the above information as my discharge summary. OCTAVIANO/MAIKEL Garrett Meyer Jr., M.D. / [id number] CC: Fatou Gracia N.P.
[2016-09-11 13:33] LABS: BASOPHILS 0.4 %; BASOPHILS ABSOLUTE 0.04 10/3/uL (0.0-0.16); EOSINOPHILS ABSOLUTE 0.27 10/3/uL (0.0-0.53); HEMOGLOBIN 16.8 g/dL (13.6-17.8); IMMATURE GRANULOCYTES 0.3 %; IMMATURE GRANULOCYTES ABSOLUTE 0.03 10/3/uL (0.0-0.11); LYMPHOCYTES 41.6 %; LYMPHOCYTES ABSOLUTE 3.78 10/3/uL (0.67-4.30); MANUAL DIFF NO %; MEAN CORPUSCULAR HEMOGLOB 31.8 pg (26.0-34.0); MEAN CORPUSCULAR VOLUME 90.7 fL (80-100); MEAN PLATELET VOLUME 8.6 fL (9.2-13.0); MONOCYTES ABSOLUTE 0.64 10/3/uL (0.21-1.20); NEUTROPHILS 47.7 %; NEUTROPHILS ABSOLUTE 4.33 10/3/uL (2.02-8.40); PLATELET COUNT 503 10/3/uL (150-400); RBC DISTRIBUTION WIDTH 13.2 % (12.0-16.0); RED CELL COUNT 5.29 10/6/uL (4.7-6.1); WHITE BLOOD CELLS 9.1 10/3/uL (4.5-10.5)
[2016-09-11 13:41] LABS: PARTIAL THROMBO TIME 29.7 SEC (22.5-37.2); PROTIME (NOT ORD) 13.2 SEC (12.0-14.5)
[2016-09-11 13:48] LABS: BUN (BLOOD UREA NITROGEN) 10 MG/DL (6-23); CALCIUM, SERUM 9.5 MG/DL (8.5-10.4); CHLORIDE, SERUM 104 MMOL/L (96-112); CO2 (CARBON DIOXIDE) 27 MMOL/L (24-34); CREATININE 1.05 MG/DL (0.70-1.30); GFR AFRICAN AMERICAN 100 ML/MIN (>=60); GFR NON AFRICAN AMERICAN 86 ML/MIN (>=60); POTASSIUM, SERUM 4.3 MMOL/L (3.5-5.3)
[2016-09-11 13:49] LABS: GLUCOSE, SERUM 100 MG/DL (60-99); SODIUM, SERUM 139 MMOL/L (135-148)
[2016-09-11] MEDS ORDERED: LANTUS SC (15:21)
[2016-09-14] MEDS ORDERED: PCET PO (12:15)
[2016-10-27] MEDS ORDERED: FLEX PO (16:09)
== END 2016-09-14 14:26 | disposition home or self-care (01) | DRG 475 ==
LOC: SDC/OF 12:42 → 2SO 18:45
PROVIDERS: Surgery
PROC: 0Y6F0ZZ Detachment at Right Knee Region, Open Approach (ICD-10-PCS; principal; 2016-09-11 16:15)
DX: T87.53 Necrosis of amputation stump, right lower extremity (principal); I69.351 Hemiplegia and hemiparesis following cerebral infarction affecting right dominant side; E11.42 Type 2 diabetes mellitus with diabetic polyneuropathy; E11.9 Type 2 diabetes mellitus without complications; I10 Essential (primary) hypertension; I73.9 Peripheral vascular disease, unspecified; I70.213 Atherosclerosis of native arteries of extremities with intermittent claudication, bilateral legs; I25.10 Atherosclerotic heart disease of native coronary artery without angina pectoris; F17.210 Nicotine dependence, cigarettes, uncomplicated; I25.2 Old myocardial infarction; Z95.5 Presence of coronary angioplasty implant and graft; Z98.890 Other specified postprocedural states; Z86.73 Personal history of transient ischemic attack (TIA), and cerebral infarction without residual deficits
CPT/HCPCS: 80048; 82962; 85025; 85610; 85730; 88307; 88311; A9270-GY; J0690; J1170; J2250; J2270; J3010

== ENCOUNTER 2016-10-28 10:10 | Inpatient (IN) | payer MEDICARE ==
--- NOTE | ~2016-10-28 | CN ---
Consultation Report [facility] [address] [place]. [address] NAME: RANDY ADDISON : 74 STATUS : ADM IN PAT#: [id number] AGE: 46 ADM/REG DATE : 10/28/16 MR#: [id number] REPORT SERV DATE: 10/29/16 DICTATED BY: JADE HIGUERA DATE: 10/29/16 REPORT STATUS : Draft TRANSCRIBED BY: MODL DATE: 10/29/16 INFECTIOUS DISEASE CONSULT DATE OF CONSULTATION: REASON FOR REFERRAL: Evaluation and treatment of possible infection in the lower extremity. HISTORY OF PRESENT ILLNESS: The patient is a 46-year-old male. He has a past medical history of hypertension, diabetes mellitus, peripheral neuropathy in his lower extremities, peripheral vascular disease, and coronary artery disease. He developed ischemic problems in his right lower extremity beginning in April. He has undergone multiple attempts at revascularization. Up through 09/2016 when these had ultimately failed, he underwent a right rlktc-jdi-wlxe amputation. In late 09/2016, there was progressive ischemia and so a knee disarticulation was done, and he continued to have problems. He had no fevers and chills, but progression of necrotic tissue and so was readmitted yesterday and has undergone now an hemcw-jec-vdzv amputation. No fevers or chills. Cultures were submitted from fluid at the time of the procedure by Dr. Meyer and is growing Staph, but too young to definitively identify. He has received doses of vancomycin and Zosyn. He denies any trauma or unusual environmental exposures other than the hospitals. PAST MEDICAL HISTORY: Otherwise, unremarkable. MEDICATIONS: As described above. ALLERGIES: NO KNOWN ANTIMICROBIAL ALLERGIES. SOCIAL HISTORY: He is , disabled. He has used tobacco in the past, but now chews a non-nicotine herbal product rather than chewing tobacco. No history of alcohol or substance abuse. FAMILY HISTORY: Noncontributory. PHYSICAL EXAMINATION: GENERAL: Nontoxic adult male, in no acute distress. He is alert and oriented x3. VITAL SIGNS: His temperature here has been normal throughout the stay; it is 98.2 at present with a pulse of 96, respirations 18, blood pressure 148/78. His weight prior to amputation was 110 kg. HEENT: Sclerae clear. No oral lesions. NECK: Supple. LUNGS: Clear. HEART: Regular rate and rhythm. ABDOMEN: Soft, nontender. Positive bowel sounds. EXTREMITIES: The right blciy-gvz-ggqj amputation dressing is clean and dry. Skin above it is normal. Consultation Report [facility] [address] [place]. [address] NAME: RANDY ADDISON : 74 STATUS : ADM IN PAT#: [id number] AGE: 46 ADM/REG DATE : 10/28/16 MR#: [id number] REPORT SERV DATE: 10/29/16 DICTATED BY: JADE HIGUERA DATE: 10/29/16 REPORT STATUS : Draft TRANSCRIBED BY: MAIKEL DATE: 10/29/16 LABORATORY DATA: His hematocrit was 43.5 last night. No full CBC has been done. BUN and creatinine 14 and 1.01. IMPRESSION: Progressive tissue loss, uncertain what role if any infection is playing in this, but with the possible positive cultures, certainly could be contributing, and Dr. Meyer is extremely concerned about anything like infection that might contribute to continued tissue loss in this unfortunate patient. RECOMMENDATIONS: 1. Agree with the vancomycin. 2. Stop the Zosyn. 3. Review the cultures tomorrow. Change antibiotics as indicated. Decide ultimately discharge him home. Finally, I will follow the patient with you. I appreciate very much your consulting on this patient. DARVIN Jade Higuera M.D. / [id number] CC: Karen Ellis Jr., N.P.
--- NOTE | ~2016-10-28 | DS ---
Discharge Summary [facility] [address] [place]. [address] NAME: RANDY ADDISON : 74 STATUS : DIS IN PAT#: [id number] AGE: 46 ADM/REG DATE : 10/28/16 MR#: [id number] REPORT SERV DATE: 11/18/16 DICTATED BY: GARRETT MEYER JR. DATE: 11/17/16 REPORT STATUS : Draft TRANSCRIBED BY: MAIKEL DATE: 11/17/16 Data Collection from hospitalization DISCHARGE DIAGNOSES: 1. Failed right knee disarticulation. 2. Hypertension. 3. Diabetes mellitus. 4. Vascular disease. 5. History of brain abscess. 6. Former tobacco use. 7. Atherosclerotic cardiovascular disease. 8. History of myocardial infarction. 9. History of cerebrovascular accident with right hemiparesis. CONSULTATIONS: Dr. Sav Henderson. Dr. Rian Ron. PROCEDURES PERFORMED: Right above-knee amputation, 10/28/2016. PATHOLOGY: Right lower extremity stump, above-knee amputation-gangrene, occluded popliteal artery organizing deep venous thrombosis. MEDICATIONS: Norvasc 5 mg every morning, aspirin 325 mg every morning, Lipitor 40 mg at bedtime, Colace 100 mg twice a day, NovoLog injection insulin as instructed, Lantus 50 units subcutaneously twice a day, Synthroid 150 mcg every morning, Zyvox 600 mg every 12 hours, Ativan 2 mg at bedtime as needed, Lopressor 25 mg twice a day, Movantik 25 mg daily as needed, Mycostatin one application topically as needed, Prilosec 40 mg every morning, Percocet 5/325 one to two tablets every four to six hours as needed, Senokot one tablet every six hours as needed, magnesium citrate 105 mL twice a day as needed. He was instructed not to continue Flexeril with Zyvox. CONDITION AT DISCHARGE: Stable. DISPOSITION: The patient was discharged home to be followed by home health care on a low- cholesterol, 2000-calorie diabetic diet with no concentrated carbohydrates and activities as instructed. He would follow up with Mary Ann Ibanez N.P., 11/10/2016. HOSPITAL COURSE: This is a 46-year-old man, who has a history of stroke involving the right side of his body. He then had critical ischemia of the right leg followed by femoral- popliteal bypass done by Dr. Mcghee, this acutely failed. He was then offered below-knee amputation, which failed. This had gone onto knee disarticulation, which was finally failed. Treatment options were discussed and it was elected to proceed with right above- knee amputation. He was admitted to the hospital at this time for further evaluation and treatment. Upon admission, he was taken to the operating room, where he underwent the above-mentioned procedure. He tolerated this well and there were no complications. On postop day one, he looked good. He had minimal pain. Fluid from suprapatellar bursa revealed Staph. He was seen in consultation by Dr. Rian Ron for evaluation and treatment of possible infection Discharge Summary [address] [place]. [address] NAME: RANDY ADDISON : 74 STATUS : DIS IN PAT#: [id number] AGE: 46 ADM/REG DATE : 10/28/16 MR#: [id number] REPORT SERV DATE: 11/18/16 DICTATED BY: GARRETT MEYER JR. DATE: 11/17/16 REPORT STATUS : Draft TRANSCRIBED BY: MAIEKL DATE: 11/17/16 in the lower extremity. Cultures had been submitted from fluid at the time of his procedure and revealed staph. This was too young to definitively identify at this time. He had received doses of vancomycin and Zosyn. He denied any trauma or unusual environmental exposures, other than the hospital. Creatinine level was 1.01. He had had progressive tissue loss. We were uncertain what roll if any infection was playing in this, but with the possible positive cultures, certainly this could be contributing. There was concern about anything-like infection that might contribute to continue tissue loss in this unfortunate patient. He agreed with vancomycin. Zosyn was stopped. Antibiotics would be changed as indicated. He was evaluated by Physical Therapy. On 10/30/2016, he had no new symptoms. He remained afebrile. His pain was controlled with the STRIPING MACHINE OPERATOR. He was working with Physical Therapy. On 10/31/2016, he had no new complaints. White count was 9.6. He continued to receive vancomycin. He would be changed to Zyvox at discharge. His pain was controlled. He had not had a bowel movement since surgery. On-Q pump was removed. Vancomycin was continued for MRSA. On 11/03/2016, the patient was doing well. He did have some pain during the night, but it was better this morning. White count was 9.7. There was no evidence of cellulitis. He was seen by Dr. Sav Henderson, regarding hypoglycemia. The patient has a history of adult onset diabetes mellitus of about 7 years duration. He was on high-dose insulin. His calories had been restricted during the hospitalization and he was eating only about 50% of his diet. His morning blood sugars had been in the 50s. Adjustments were made to his diabetic regimen. Protein S and protein C were going to be checked as well as antithrombin III activity and factor V Leiden assay and lupus anticoagulant. PT and PTT were going to be checked. He does have a thrombocytosis with platelet count of 600,000. He was going to defer to the followup of this clotting chest and the decision on persistent long-term Eliquis or not. He continued to do well. His pain was under better control. He remained afebrile. Discharge planning was performed. He did have a bowel movement. He was eager to go home. Discharge instructions were given. Due to his improved and stable condition, he was discharged home to be followed by home health care with the above-stated instructions. Information collected by: Albina Oliveros I submit the above information as my discharge summary. TG/MODL Garrett Meyer Jr., M.D. / [id number] CC: Karen Ellis Jr., N.P. Mark Anderson, M.D.
--- NOTE | ~2016-10-28 | OP ---
Record Of Operation [facility] [address] [place]. [address] NAME: RANDY ADDISON : 74 STATUS : ADM IN PAT#: [id number] AGE: 46 ADM/REG DATE : 10/28/16 MR#: [id number] REPORT SERV DATE: 10/28/16 DICTATED BY: GARRETT MEYER JR. DATE: 10/28/16 REPORT STATUS : Draft TRANSCRIBED BY: MODCapri DATE: 10/28/16 DATE OF PROCEDURE: 10/28/2016 PREOPERATIVE DIAGNOSIS: Failed right knee disarticulation. POSTOPERATIVE DIAGNOSIS: Failed right knee disarticulation. OPERATION: Right above-knee amputation. HISTORY: This is a 46-year-old white male, who has a stroke involving the right side of his body. He then had critical ischemia of his right leg followed by femoral-popliteal bypass done by Dr. Mcghee. This acutely failed. I then offered him a below-knee amputation which failed, and then we went to a knee disarticulation which was finally failed. He is back today for an above-knee amputation. DESCRIPTION OF PROCEDURE: The patient was placed on the operating room table. He underwent general endotracheal anesthetic. The right wound was wrapped in an Ioban dressing. The leg was prepped and draped in a sterile manner as possible. Standard anterior and posterior flaps were then drawn and cut with a knife. All muscle appeared to be viable. Unfortunately, there was some contamination from the suprapatellar bursa into the wound. All bursal tissue was then excised and ultimately removed with the stump. The muscles were all cut with a cautery. The periosteum was pushed off the bone. The bone was then transected with a power saw. The sciatic nerve was identified. It was clamped, cut, and tied and injected with Marcaine as was the periosteum of the bone. The wound was irrigated. There was no need for drain. The fascia was closed with 2-0 Vicryl. An ON-Q pain pump catheter was placed underneath the fascial sutures. The skin was closed with a running 3-0 nylon. The patient tolerated the procedure well, and taken back to the recovery room in fair condition. There were no intraoperative cultures and no intraoperative complications. ESTIMATED BLOOD LOSS: 300 mL. DF/MODL Garrett Meyer Jr., M.D. / [id number] CC: Karen Ellis Jr., N.P.
--- NOTE | ~2016-10-28 | CN ---
Consultation Report [facility] [address] [place]. [address] NAME: RANDY ADDISON : 74 STATUS : ADM IN PAT#: [id number] AGE: 46 ADM/REG DATE : 10/28/16 MR#: [id number] REPORT SERV DATE: 11/01/16 DICTATED BY: LIZZETTE COLMENARES DATE: 10/30/16 REPORT STATUS : Draft TRANSCRIBED BY: MODL DATE: 10/30/16 MEDICAL CONSULTATION DATE OF CONSULTATION: 10/30/2016 REASON FOR CONSULTATION: Hypoglycemia. HISTORY OF PRESENT ILLNESS: This is a 46-year-old white male with adult onset diabetes mellitus about seven years duration. He was on high dose insulin. His calories have been restricted during the hospitalization eating only 50% of his diet and morning blood sugars have been in the 50s in the last two mornings. We were consulted because of hypoglycemia and insulin and oral intake disparity to try to address this. 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 The Levemir was increased to 55 units subcu b.i.d. by Dr. Morris during the stay at the rehabilitation at [facility]. He had been on 32 units of NovoLog before meals three times a day as well. He has been eating about 50% of an 1800 calorie ADA diet daily. 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 He is having some pain in that right leg now. PAST MEDICAL HISTORY: Significant for vascular disease. 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 He had a craniotomy, but said there was no large abscess that developed at that time. He has had right hemiparesis. He claims that he had a stroke that caused this though there was some contribution to the left craniotomy of the head from this as well. He has also had deep venous thrombosis in the right lower extremity, multiple vascular events, and history of a heart attack in the past. He does not know the clotting abnormality. His says he has never been evaluated for clotting abnormality, but she is sure he has one. MEDICATIONS: His current hospital medicines include amlodipine 5 mg p.o. daily, aspirin 325 p.o. daily, atorvastatin 40 mg daily, cyclobenzaprine 10 mg t.i.d., Valium 5 mg q.6 hours, Lovenox 40 mg subcu daily. He is on the Levemir 55 units subcu b.i.d., sliding-scale insulin, levothyroxine 150 mcg p.o. daily, metoprolol 25 mg p.o. b.i.d., pantoprazole 40 mg before breakfast, and vancomycin 500 mg IV every 12 hours, now being switched to Zyvox by Dr. Rian Ron. Dr. Ron indicates he had MRSA in the culture of his amputated segment of his right leg. His stroke, hemiparesis, and craniotomy were in 2006 to 2008. SOCIAL HISTORY: He has been twice. He has been for four years with the present . They live in [place]. He previously lived down toward [facility] in [facility], on [address]. He smokes cigarettes, he quit those in the last year, and now he takes seaweed snuff. He does not take any alcohol any longer. Consultation Report [address] [address] NAME: RANDY ADDISON : 74 STATUS : ADM IN [facility]#: [id number] AGE: 46 ADM/REG DATE : 10/28/16 MR#: [id number] REPORT SERV DATE: 11/01/16 DICTATED BY: LIZZETTE COLMENARES DATE: 10/30/16 REPORT STATUS : Draft TRANSCRIBED BY: MAIKEL DATE: 10/30/16 FAMILY HISTORY: Unsure because the patient was adopted. He has no known blood siblings; however, he does have children two naturally that do not have clotting abnormalities at young age. REVIEW OF SYSTEMS: He has had no chest pain or shortness of breath. He does have weakness in his right upper extremity. He can move at the hip on the right side. He has had no fever, chills, night sweats, melena, hematemesis, unilateral weakness, nausea, vomiting, diarrhea, fits, seizures, or convulsions. He does have hypoglycemia episodically. The remainder of the review of systems is negative. PHYSICAL EXAMINATION: VITAL SIGNS: Blood pressure is 147 to 180 in the last 24 hours with a heart rate of 84, respiratory rate 16, afebrile. HEENT: EOMI. Sclerae clear. Conjunctivae pink. Scalp has evidence of craniotomy on the left side with a crescentic incision. NECK: No bruit without any JVD. CHEST: Clear to A and P. HEART: Regular S1, S2 without murmur, gallop, or click. ABDOMEN: Obese, nontender. Bowel sounds positive. No HSM. EXTREMITIES: Have right above the knee amputation with suture line intact. NEUROLOGIC: Some dysarthria and hesitance of speech, right hemiparesis, and left side is intact. SKIN: Without rash, ecchymosis, or bruising. LYMPHATICS: None are palpable. LABORATORY: No PT or PTT has been drawn during the hospitalization. Hemoglobin 12.1, hematocrit 36.5, white count 6.6, platelet count was 606 today. Creatinine is 0.86, BUN 11, sodium 136, potassium 3.9. ASSESSMENT: 1. Diabetes type 2. Blood sugars have run 74, 56, and 98 the last three. He has had blood sugars into the 50s down intermittently with symptoms. His Levemir has been cut to 30 units b.i.d. I think a better regimen may be to give the Levemir at nighttime and use 50 units. We will restart this on 10/31 h.s. I am going to add a small amount of insulin back 12 units before each meal and see if this will reduce the traverse of blood sugars up and down. This is less than his usual dose of 32 a.c. t.i.d. and 55 b.i.d. of the Levemir. He has had his sugar for nine years duration. 2. Hypoglycemia. 3. Atherosclerotic cardiovascular disease with heart attack in 2006 to 2008. 4. History of cerebrovascular accident with right hemiparesis. 5. 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 6. History of deep venous thrombosis on the right side. He was on Eliquis in the past. Consultation Report [place] [address] [place]. [address] NAME: RANDY ADDISON : 74 STATUS : ADM IN [facility]#: [id number] AGE: 46 ADM/REG DATE : 10/28/16 MR#: [id number] REPORT SERV DATE: 11/01/16 DICTATED BY: LIZZETTE COLMENARES DATE: 10/30/16 REPORT STATUS : Draft TRANSCRIBED BY: MODL DATE: 10/30/16 The patient has not had previous clotting evaluation. I am going to go ahead and order a protein S, protein C, and antithrombin III activities, factor V Leiden assay and lupus anticoagulant. We will check a PT and PTT today, and if they are abnormal, we would use mixing studies. He does have a thrombocytosis with a platelet count of 600,000. A review of the old record shows this to be the highest of all platelet counts. His previous platelet counts in August were 356, 396, and 427,000. I doubt thrombocytosis causing this trouble though. We will check a CBC in the morning. The patient has been seen by Dr. Castle in [place] and will be coming to Dr. Miller of [facility] soon. Dr. Melo and subsequently Dr. Mcghee, Dr. Meyer, and Dr. Blanco have seen the patient for vascular disease. His primary care provider is Venice Ibanez nurse practitioner in [place]. I will defer to her the followup of these clotting test and the decision on persistent long-term Eliquis or not. Thank you for the consultation. I have extended from the diabetes to the hematology questions as well. DB/MODL Lizzette Colmenares M.D. / [id number] CC: Karen Ellis Jr., N.P. Michael Greer, M.D. Sachin V Phade, M.D. John Carter Hemphill, MD Christopher Lesar, M.D. Dr. Michael Ware
[~2016-10-28 10:10] MED LIST changes: +FLEX PO; +PCET PO
[2016-10-28 10:47] LABS: HEMATOCRIT 43.5 % (40.0-51.0); HEMOGLOBIN 14.8 g/dL (13.6-17.8)
[2016-10-28 10:57] LABS: BUN (BLOOD UREA NITROGEN) 14 MG/DL (6-23); CALCIUM, SERUM 9.9 MG/DL (8.5-10.4); CHLORIDE, SERUM 99 MMOL/L (96-112); CO2 (CARBON DIOXIDE) 29 MMOL/L (24-34); CREATININE 1.01 MG/DL (0.70-1.30); GFR AFRICAN AMERICAN 104 ML/MIN (>=60); GFR NON AFRICAN AMERICAN 90 ML/MIN (>=60); GLUCOSE, SERUM 92 MG/DL (60-99); POTASSIUM, SERUM 4.6 MMOL/L (3.5-5.3); SODIUM, SERUM 133 MMOL/L (135-148)
[2016-10-30 04:39] LABS: BASOPHILS 0.3 %; BASOPHILS ABSOLUTE 0.03 10/3/uL (0.0-0.16); EOSINOPHILS 1.4 %; EOSINOPHILS ABSOLUTE 0.16 10/3/uL (0.0-0.53); HEMATOCRIT 36.5 % (40.0-51.0); HEMOGLOBIN 12.1 g/dL (13.6-17.8); IMMATURE GRANULOCYTES 0.4 %; IMMATURE GRANULOCYTES ABSOLUTE 0.04 10/3/uL (0.0-0.11); LYMPHOCYTES 16.8 %; LYMPHOCYTES ABSOLUTE 1.88 10/3/uL (0.67-4.30); MEAN CORPUS HGB CONC 33.2 g/dL (32.0-36.0); MEAN CORPUSCULAR HEMOGLOB 29.6 pg (26.0-34.0); MEAN CORPUSCULAR VOLUME 89.2 fL (80-100); MEAN PLATELET VOLUME 8.2 fL (9.2-13.0); MONOCYTES 6.5 %; MONOCYTES ABSOLUTE 0.73 10/3/uL (0.21-1.20); NEUTROPHILS 74.6 %; NEUTROPHILS ABSOLUTE 8.34 10/3/uL (2.02-8.40); PLATELET COUNT 606 10/3/uL (150-400); RBC DISTRIBUTION WIDTH 13.8 % (12.0-16.0); RED CELL COUNT 4.09 10/6/uL (4.7-6.1); WHITE BLOOD CELLS 11.2 10/3/uL (4.5-10.5)
[2016-10-30 04:40] LABS: MANUAL DIFF NO %
[2016-10-30 04:54] LABS: BUN (BLOOD UREA NITROGEN) 11 MG/DL (6-23); CHLORIDE, SERUM 100 MMOL/L (96-112); CO2 (CARBON DIOXIDE) 31 MMOL/L (24-34); CREATININE 0.86 MG/DL (0.70-1.30); GFR AFRICAN AMERICAN 122 ML/MIN (>=60); GFR NON AFRICAN AMERICAN 105 ML/MIN (>=60); POTASSIUM, SERUM 3.9 MMOL/L (3.5-5.3); SODIUM, SERUM 136 MMOL/L (135-148)
[2016-10-30 05:00] LABS: GLUCOSE, SERUM 51 MG/DL (60-99)
[2016-10-30 13:58] LABS: INTERNATIONAL NORMAL RATI 1.1 UNITS (-); PROTIME (NOT ORD) 14.5 SEC (12.0-14.5)
[2016-10-31 06:16] LABS: BASOPHILS 0.3 %; BASOPHILS ABSOLUTE 0.03 10/3/uL (0.0-0.16); EOSINOPHILS 2.7 %; EOSINOPHILS ABSOLUTE 0.26 10/3/uL (0.0-0.53); HEMATOCRIT 33.5 % (40.0-51.0); HEMOGLOBIN 11.4 g/dL (13.6-17.8); IMMATURE GRANULOCYTES 0.4 %; IMMATURE GRANULOCYTES ABSOLUTE 0.04 10/3/uL (0.0-0.11); LYMPHOCYTES 19.3 %; LYMPHOCYTES ABSOLUTE 1.84 10/3/uL (0.67-4.30); MEAN CORPUSCULAR HEMOGLOB 30.2 pg (26.0-34.0); MEAN CORPUSCULAR VOLUME 88.6 fL (80-100); MEAN PLATELET VOLUME 8.3 fL (9.2-13.0); MONOCYTES ABSOLUTE 0.67 10/3/uL (0.21-1.20); NEUTROPHILS 70.3 %; NEUTROPHILS ABSOLUTE 6.71 10/3/uL (2.02-8.40); PLATELET COUNT 650 10/3/uL (150-400); RBC DISTRIBUTION WIDTH 13.5 % (12.0-16.0); RED CELL COUNT 3.78 10/6/uL (4.7-6.1); WHITE BLOOD CELLS 9.6 10/3/uL (4.5-10.5)
[2016-10-31 06:20] LABS: MANUAL DIFF NO %
[2016-10-31 06:28] LABS: BUN (BLOOD UREA NITROGEN) 8 MG/DL (6-23); CALCIUM, SERUM 8.8 MG/DL (8.5-10.4); CHLORIDE, SERUM 99 MMOL/L (96-112); CO2 (CARBON DIOXIDE) 29 MMOL/L (24-34); CREATININE 0.95 MG/DL (0.70-1.30); GFR AFRICAN AMERICAN 112 ML/MIN (>=60); GFR NON AFRICAN AMERICAN 97 ML/MIN (>=60); POTASSIUM, SERUM 4.4 MMOL/L (3.5-5.3); SODIUM, SERUM 135 MMOL/L (135-148)
[2016-10-31 06:30] LABS: GLUCOSE, SERUM 217 MG/DL (60-99)
[2016-11-01 04:58] LABS: BASOPHILS 0.4 %; BASOPHILS ABSOLUTE 0.03 10/3/uL (0.0-0.16); EOSINOPHILS ABSOLUTE 0.23 10/3/uL (0.0-0.53); HEMATOCRIT 35.1 % (40.0-51.0); IMMATURE GRANULOCYTES 0.3 %; IMMATURE GRANULOCYTES ABSOLUTE 0.02 10/3/uL (0.0-0.11); LYMPHOCYTES 28.1 %; LYMPHOCYTES ABSOLUTE 2.15 10/3/uL (0.67-4.30); MEAN CORPUS HGB CONC 34.2 g/dL (32.0-36.0); MEAN CORPUSCULAR HEMOGLOB 29.6 pg (26.0-34.0); MEAN CORPUSCULAR VOLUME 86.7 fL (80-100); MEAN PLATELET VOLUME 8.1 fL (9.2-13.0); MONOCYTES 6.9 %; MONOCYTES ABSOLUTE 0.53 10/3/uL (0.21-1.20); NEUTROPHILS 61.3 %; NEUTROPHILS ABSOLUTE 4.69 10/3/uL (2.02-8.40); PLATELET COUNT 697 10/3/uL (150-400); RBC DISTRIBUTION WIDTH 13.3 % (12.0-16.0); RED CELL COUNT 4.05 10/6/uL (4.7-6.1); WHITE BLOOD CELLS 7.7 10/3/uL (4.5-10.5)
[2016-11-01 04:59] LABS: MANUAL DIFF NO %
[2016-11-01 05:10] LABS: BUN (BLOOD UREA NITROGEN) 8 MG/DL (6-23); CALCIUM, SERUM 8.9 MG/DL (8.5-10.4); CHLORIDE, SERUM 101 MMOL/L (96-112); CO2 (CARBON DIOXIDE) 28 MMOL/L (24-34); CREATININE 0.92 MG/DL (0.70-1.30); GFR AFRICAN AMERICAN 117 ML/MIN (>=60); GFR NON AFRICAN AMERICAN 101 ML/MIN (>=60); GLUCOSE, SERUM 122 MG/DL (60-99); POTASSIUM, SERUM 3.7 MMOL/L (3.5-5.3); SODIUM, SERUM 135 MMOL/L (135-148)
[2016-11-01 22:36] LABS: PROTEIN C ACTIVITY 135 % (70-145); PROTEIN S ACTIVITY 59 % (69-161)
[2016-11-02 11:20] LABS: DRVVT 33.8 sec (31.8-45.7); DRVVT CONFIRM RATIO CHG ND; DRVVT MIX RATIO CHG ND
[2016-11-03 05:10] LABS: BUN (BLOOD UREA NITROGEN) 8 MG/DL (6-23); CALCIUM, SERUM 9.1 MG/DL (8.5-10.4); CHLORIDE, SERUM 98 MMOL/L (96-112); CO2 (CARBON DIOXIDE) 24 MMOL/L (24-34); CREATININE 1.05 MG/DL (0.70-1.30); GFR AFRICAN AMERICAN 100 ML/MIN (>=60); GFR NON AFRICAN AMERICAN 86 ML/MIN (>=60); SODIUM, SERUM 132 MMOL/L (135-148)
[2016-11-03 05:12] LABS: GLUCOSE, SERUM 308 MG/DL (60-99); POTASSIUM, SERUM 4.5 MMOL/L (3.5-5.3)
[2016-11-03] MEDS ORDERED: ZYVOXPO PO (13:58)
[2016-11-03] MEDS ORDERED: PCET PO (13:59)
[2016-11-03] MEDS ORDERED: DSS PO (14:04)
[2016-11-03] MEDS ORDERED: MOVANTIK25 MG PO (15:24)
[2016-11-03] MEDS ORDERED: LANTUS SC (15:26)
[2016-11-03] MEDS ORDERED: SENTAB PO (15:27)
[2016-11-03] MEDS ORDERED: MAGNESIUM CITRATE PO (15:30)
== END 2016-11-03 17:09 | disposition home or self-care (01) | DRG 475 ==
LOC: SDC/OF 10:10 → PACU 13:45 → 2SO 15:04
PROVIDERS: Internal Medicine Infectious Disease; Nurse Practitioner Family; Surgery
PROC: 0Y6C0Z3 Detachment at Right Upper Leg, Low, Open Approach (ICD-10-PCS; principal; 2016-10-28 11:45)
DX: T87.53 Necrosis of amputation stump, right lower extremity (principal); I69.351 Hemiplegia and hemiparesis following cerebral infarction affecting right dominant side; E11.42 Type 2 diabetes mellitus with diabetic polyneuropathy; E11.649 Type 2 diabetes mellitus with hypoglycemia without coma; I10 Essential (primary) hypertension; I25.10 Atherosclerotic heart disease of native coronary artery without angina pectoris; D47.3 Essential (hemorrhagic) thrombocythemia; A49.02 Methicillin resistant Staphylococcus aureus infection, unspecified site; Z79.4 Long term (current) use of insulin; Z86.718 Personal history of other venous thrombosis and embolism; I25.2 Old myocardial infarction; I69.822 Dysarthria following other cerebrovascular disease; Z87.891 Personal history of nicotine dependence
CPT/HCPCS: 71010; 80048; 80202; 81241; 82962; 85014; 85018; 85025; 85300; 85303; 85306; 85610; 85613; 85670; 85730; 87070; 87075; 87077; 87186; 87205; 88307; 88311; 93005; 97110-GP; 97161-GP; A9270-GY; G8978-CM-GP; G8979-CM-GP; J1170; J2250; J2270; J2405; J2543; J2710; J3010; J3370